=== PATIENT | female | born 1980 | race Caucasian/White ===

== ENCOUNTER 2016-06-20 16:08 | Emergency (ER) | payer OTHER ==
[2016-06-20 16:15] VITALS: TEMP 98.4
[2016-06-20] MEDS ORDERED: IPRATROPIUM/ALBUTEROL 3 ML DEYVIAL IH ONE (16:21)
[2016-06-20] MEDS ORDERED: predniSONE 20 MG TAB PO ONE (16:21)
--- NOTE | 2016-06-20 16:25 | EDPHY ---
H & P Stated Complaint: sob/increased inhaler use without resolution/r ear paion Time Seen by Provider: 06/20/16 16:16 HPI/ROS: CHIEF COMPLAINT: "My asthma is flared up" HISTORY OF PRESENT ILLNESS: 35-year-old female history of asthma complaining of 4 days of nasal congestion, right otalgia, wheezing, asthma exacerbation, using her inhaler more than usual. No chest pain. No back pain. No syncope or near syncope. No abdominal pain. No nausea or vomiting. No peripheral edema. No history of immobilization or immobility. No history of long-distance travel. REVIEW OF SYSTEMS: A ten point review of systems was performed and is negative with the exception of the items mentioned in the HPI PAST MEDICAL & SURGICAL HISTORY: Asthma. No history of thromboembolus SOCIAL HISTORY: nonsmoker PHYSICAL EXAM (Prior to examination, patient consented to physical exam, hands were washed and my usual and customary physical exam procedures followed) 1) GENERAL: Well-developed, well-nourished, alert and oriented. Appears to be in no acute distress.Speaking full sentences. 2) HEAD: Normocephalic, atraumatic 3) HEENT: Pupils equal, round, reactive to light bilaterally. Sclera anicteric. Nasopharynx: rhinorrhea. oropharynx, clear, no lesions. Ears bilaterally with normal tympanic membranes, no evidence of otitis media or otitis externa 4) NECK: Full range of motion, no meningeal signs. 5) LUNGS: Clear auscultation bilaterally, no wheezes, no rhonchi, no retractions. 6) HEART: Regular rate and rhythm, no murmur, no heave, no gallop. 7) ABDOMEN: No guarding, no rebound, no focal tenderness, 8) MUSCULOSKELETAL: negative Homans no palpable cord. No peripheral edema or discoloration. 9) BACK: No CVA tenderness. 10) SKIN: No rash, no petechiae. DIFFERENTIAL DIAGNOSIS: In no particular include but not limited to acute asthma exacerbation, pulmonary embolus, pneumothorax, pneumonia - Personal History LMP (Females 10-55): 1-7 Days Ago Current Tetanus/Diphtheria Vaccine: Yes - Medical/Surgical History Hx Asthma: Yes Hx Chronic Respiratory Disease: No Hx Diabetes: No Hx Cardiac Disease: No Hx Renal Disease: No Hx Cirrhosis: No Hx Alcoholism: No Hx HIV/AIDS: No Hx Splenectomy or Spleen Trauma: No Other PMH: asthma - Social History Smoking Status: Never smoked Constitutional: Initial Vital Signs Temperature (C) 36.9 C 06/20/16 16:12 Heart Rate 102 H 06/20/16 16:12 Respiratory Rate 22 H 06/20/16 16:12 Blood Pressure 136/99 H 06/20/16 16:12 O2 Sat (%) 93 06/20/16 16:12 O2 Delivery Mode Room Air Allergies/Adverse Reactions: Penicillins Allergy (Verified 06/20/16 16:12) Home Medications: Medication Instructions Recorded AZITHROMYCIN [Z-PACK] 500 mg PO DAILY #1 packet 06/20/16 Albuterol 06/20/16 predniSONE [Prednisone] 20 mg PO DAILY #9 tablet 06/20/16 Medical Decision Making ED Course/Re-evaluation: 5:19 p.m.: Re-evaluation after DuoNeb and prednisone. Her wheezing has resolved. She is feeling subjectively improved. She is maintaining saturations 93-95% on room air. She has sufficient supply of albuterol at home. She will be given few more days of prednisone. Doubt pulmonary embolus although it was considered in the differential diagnosis. Recommend close follow-up with primary care provider. Strict return precautions and instructions provided the patient. She feels comfortable being discharged home.Care and management in consultation with secondary supervising physician Dr Larson . - Data Points Medications Given: Discontinued Medications Albuterol/Ipratropium (Duoneb) 3 ml IH EDNOW ONE Stop: 06/20/16 16:22 Last Admin: 06/20/16 16:47 Dose: 3 ml Prednisone (Prednisone) 60 mg PO EDNOW ONE Stop: 06/20/16 16:22 Last Admin: 06/20/16 16:29 Dose: 60 mg Departure - Departure Disposition: Home, Routine, Self-Care Clinical Impression: Exacerbation of asthma Condition: Good Instructions: Asthma (ED) Additional Instructions: return to the emergency department immediately if you develop shortness of breath, chest pain, or any other symptoms that concern you Referrals: Nallely Shirley MD [Primary Care Provider] - 1-2 days without fail Prescriptions: AZITHROMYCIN [Z-PACK] 500 mg PO DAILY #1 packet predniSONE [Prednisone] 20 mg PO DAILY #9 tablet
[2016-06-20 17:23] VITALS: BP 123/68; PULSE 100; RESP 18; O2SAT 92
== END 2016-06-20 17:37 | disposition home or self-care (01) ==
DX: J45.901 Unspecified asthma with (acute) exacerbation (principal)